=== PATIENT | female | born 1990 | race Caucasian/White ===

== ENCOUNTER 2024-06-26 17:11 | Emergency (ER) | payer OTHER, SELFPAY ==
[2024-06-26 17:20] VITALS: BP 112/80; PULSE 90; RESP 16; TEMP 37.1; O2SAT 100
--- NOTE | 2024-06-26 17:39 | ED_ITS ---
HPI - URI/Sore Throat General Chief Complaint: Upper Respiratory Infection Stated Complaint: sore throat strep exp Time Seen by Provider: 06/26/24 17:39 Source: patient Mode of arrival: ambulatory Limitations: no limitations History of Present Illness HPI Narrative: 33 yo F presents with c/o sore throat for 1 wk. No other symptoms. Her boyfriend tested positive for strep yesterday. All systems reviewed and negative except as noted above. Related Data Home Medications ?Medication ?Instructions ?Recorded ?Confirmed ?Last Taken ?Type spironolactone 100 mg tablet 100 mg PO DAILY 12/08/20 12/14/20 Unknown History Allergies Allergy/AdvReac Type Severity Reaction Status Date / Time Sulfa (Sulfonamide Allergy Mild Rash Verified 06/26/24 17:36 Antibiotics) Review of Systems Review of Systems: CONSTITUTIONAL: Denies fever, chills, or sweats. EYES: Denies visual changes, redness, or discharge. ENT: Denies rhinorrhea, congestion . Reports sore throat. Denies otalgia. CARDIOVASCULAR: Denies chest pain, palpitations, or edema. RESPIRATORY: Denies cough or dyspnea. GASTROINTESTINAL: Denies abdominal pain, nausea, vomiting, or diarrhea. GENITOURINARY: Denies dysuria or hematuria. SKIN: Denies rash or itching. MUSCULOSKELETAL: Denies back pain, joint pain, or myalgia. NEUROLOGIC: Denies headache, numbness, or weakness. PSYCHIATRIC: Denies anxiety or depression. All other systems reviewed are negative, except as documented in HPI. [facility] Surgical History Surgical History History of umbilical hernia repair 2018 S/P breast augmentation 2018 Family History Family History Unknown Cancer Mother Anxiety Grandparent Breast cancer Other Family history of malignant neoplasm Social History Social History (Updated 06/30/23 @ 14:15 by Kimberly Oliver APRN) Smoking status: Never smoker Alcohol intake: current Substance use: never Substance use type: does not use Do You Feel Safe in your Home?: Yes Lack of Transportation: No Lack of Food: Never True Current Housing: I Have Housing Concerned About Future Housing: No Difficulty Paying Gas/Electric Bills: YES Difficulty Paying for Meds: No Currently Unemployed: No Education: High School Diploma/GED Difficulty w/ Childcare or Family Care: No Living arrangements: with family Additional living arrangements comments: has three children Occupation/Education: occupation 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 There is no relevant family history pertinent to the presenting complaint. Exam Narrative: GENERAL: This is a well-nourished, well-developed patient, in no apparent distress. HEAD: normocephalic, atraumatic. EYES: PERRL. Sclera clear/white. Vision is grossly intact. EARS: External ears normal, auditory canals clear and without drainage, TMs normal without perforation. Hearing grossly intact. NOSE: External nose normal with no obvious nasal discharge, nares without redness, no rhinorrhea. THROAT: Mucous membranes moist, mild erythema without significant swelling or exudates NECK: Neck supple, non-tender without lymphadenopathy, masses or thyromegaly. CARDIOVASCULAR: Regular rate and rhythm without murmurs, gallops, or rubs. RESPIRATORY: Clear to auscultation. Breath sounds equal bilaterally. No wheezes, rales, or rhonchi. SKIN: warm, Dry, intact with no suspicious lesions or rash, good texture and turgor. NEURO: awake, alert, and oriented to person, place and time. There were no obvious focal neurologic abnormalities. EXTREMITIES: No joint tenderness, effusion, or edema noted. Course Course Level of Care: Express Care Visit Vital Signs Vital signs: Vital Signs Temperature 37.1 C 06/26/24 17:20 Pulse Rate 90 06/26/24 17:20 Respiratory Rate 16 06/26/24 17:20 Blood Pressure 112/80 06/26/24 17:20 Pulse Oximetry 100 06/26/24 17:20 Oxygen Delivery Room Air 06/26/24 17:20 Temperature 37.1 C 06/26/24 17:20 Pulse Rate 90 06/26/24 17:20 Respiratory Rate 16 06/26/24 17:20 Blood Pressure 112/80 06/26/24 17:20 Pulse Oximetry 100 06/26/24 17:20 Oxygen Delivery Room Air 06/26/24 17:20 reviewed MDM - URI/Sore Throat MDM Narrative Medical decision making narrative: positive strep throat. Will treat with amoxicillin. Patient is well- appearing, nontoxic. Please be advised this is a medical document. It is intended for ttoq-ee-ayen communication. It is written in medical language and may contain unfamiliar abbreviations or verbiage. Medical documents are intended to carry relevant information, facts as evident, and the clinical opinion of the practitioner at the time of the encounter. This report may have been done utilizing a voice recognition system. Attempts have been made to correct errors. However, there may be uncorrected grammatical, spelling, and recognition errors present. The file time of this note does not necessarily represent the time of service. Differential Diagnosis Differential diagnosis: Likely upper respiratory infection, viral infection and pharyngitis Lab Data Labs: Lab Results 06/26/24 Range/Units 17:35 POC Grp A Strep Screen Positive (Negative) Discharge Plan Discharge Clinical Impression: Strep throat Patient Disposition: Home, Self-Care Condition: Stable Instructions: Antibiotic Form, Strep Throat (ED) Additional Instructions: Your strep test was positive today. Take antibiotic as prescribed until gone. Change toothbrush after taking antibiotic for 24 hours. Take Tylenol or ibuprofen every 6-8 hours as needed for pain and fever. Follow-up with your doctor if symptoms are not improving. Patient Language: Japanese Prescriptions: New amoxicillin 500 mg tablet 500 mg PO Q12H 10 Days Qty: 20 0RF No Action spironolactone 100 mg tablet 100 mg PO DAILY Follow-up/Referrals: Kimberly Oliver APRN [Primary Care Provider] - Time of Disposition: 17:44
[2024-06-26 17:41] LABS: EDSTREPNEGPOS1 Positive (Negative)
== END 2024-06-26 17:50 | disposition home or self-care (01) ==
PROVIDERS: Emergency Provider Nurse Practitioner Family; PCP Nurse Practitioner Family
DX: J02.0 Streptococcal pharyngitis (principal)
CPT/HCPCS: 87880; 99213; G0463

== ENCOUNTER 2024-10-15 14:52 | Outpatient (CLI) | payer MEDICAID, SELFPAY ==
--- NOTE | ~2024-10-15 | US_ITS ---
EXAMINATION: US thyroid DATE: 10/15/2024 15:32 INDICATION: Nontoxic thyroid nodule TECHNIQUE: Multiple ultrasound images of the thyroid were obtained. COMPARISON: None. FINDINGS: Within the right lobe of the thyroid gland are multiple subcentimeter nodules with central echogenic areas, raising the suspicion for papillary thyroid carcinoma. The largest of these nodules measures 5.7 x 5.9 x 3.8 mm. Two additional similar appearing nodules are identified within the left lobe of the thyroid gland, me asuring 4.2 x 2.3 mm and 2.3 x 1.9 mm. The right thyroid lobe measures 6.0 x 2.2 x 1.7 cm. The left thyroid lobe measures 4.8 x 1.5 x 1.7 cm. Within the left lobe of the thyroid gland is a 5.4 x 3.6 x 5.4 mm nodule: Composition -mixed cystic and solid (1) Echogenicity -hyperechoic and isoechoic (1) Shape - wider than tall Margin - smooth Echogenic foci - none. = TR2 not suspicious. Within the left lobe of the thyroid gland is an additional nodule measuring 6.9 x 3.5 x 6.7 mm: Composition -mixed cystic and solid (1) Echogenicity -hyperechoic and isoechoic (1) Shape - wider than tall Margin - smooth Echogenic foci - none. = TR2 not suspicious. The isthmus measures 0.4cm in anterior to posterior dimension. Within the isthmus of the thyroid gland, to the right of midline, is an 18.7 x 11.0 x 16 mm nodule: Composition -mixed cystic and solid (1) Echogenicity - hypoechoic (2) Shape - wider than tall Margin - smooth Echogenic foci - none. = TR3 Mildly suspicious Greater than or equal to 1.5 cm: Follow-up (as in this patient) Greater than or equal to 2.5 cm: FNA There is otherwise normal echotexture and echogenicity throughout the remainder of the thyroid gland. No additional discrete nodules identified. Normal vascular flow is present. IMPRESSION: Multiple subcentimeter solid nodules with a central echogenic area (which has been shown to be only 5 2% sensitive but 91% specific for papillary thyroid cancer) for which ultrasound-guided biopsy is rec ommended. Of note, the central echogenic area contains a high density of conglomerate fibrosis and should be av oided during FNA to decrease the chance of an inadequate sample collection. TR 2 and TR 3 nodules throughout the remainder of the thyroid gland for which follow-up is recommende d. Reviewed, dictated and finalized at location A. IMPRESSION: Multiple subcentimeter solid nodules with a central echogenic area (which has b een shown to be only 52% sensitive but 91% specific for papillary thyroid cance r) for which ultrasound-guided biopsy is recommended. Of note, the central echogenic area contains a high density of conglomerate fib rosis and should be avoided during FNA to decrease the chance of an inadequate sample collection. TR 2 and TR 3 nodules throughout the remainder of the thyroid gland for which f ollow-up is recommended.
--- OUTSIDE RECORDS SUMMARY | 2024-10-15 14:56 | XMS_ITS | Encounter Summary ---
Author Organization [facility] Address [address] [place] [address] Care Team Providers Care Plastics Supervisor Name Role Phone Sanket Washburn MD Unavailable Unavailabl e Encounter Details Date Type Department Care Team (Late st Contact Info) Description 04/18/2020 Lab Requisition 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 DermPath Lab Received: 04/18/2020 06:44 AM Pathologist: Tracy Burt MD Specimen: Skin, mid back 0 4:21 PM EHS SPECIALIST DERMATOPATHOLOGY LABORATORY Final Diagnosis Specimen A. SKIN, mid back: COMPOUND MELANOCYTIC NEVUS (D22.5) 0 4:21 PM EHS SPECIALIST DERMATOPATHOLOGY LABORATORY at [address] EHS SPECIALIST Clinical History Nevus. Path# [id number] 0 4:21 PM [facility] DERMATOPATHOLOGY LABORATORY Gross Description Specimen A: Received is one formalin filled container labeled with the patient's name and designated mid back. The specimen consists of a shave biopsy measuring 10x9x4 mm, bisected. Jar 0. 0 4:21 PM [facility] DERMATOPATHOLOGY LABORATORY Microscopic Description Specimen A. SKIN, mid back: There are nests of melanocytes at the dermal-epidermal junction and within the dermis. 0 4:21 PM [facility] DERMATOPATHOLOGY LABORATORY Disclaimer An external and internal positive and negative controls are appropriate for the histochemical, immunohistochemical and immunofluorescence stain(s) in this case (if any), except where stated explicitly. The performance characteristics of the stain(s) cited in this report were developed and its performance characteristic determined by the Dermatopathology Laboratory at [facility], directed by Dr. Anthony Figueroa. These tests need not be, and therefore are not, approved by the [place] Food and Drug Administration. The tests are used for clinical purposes. Billing Codes Specimen Charges Stain Charges 74629 1 0 4:21 PM [facility] DERMATOPATHOLOGY LABORATORY Embedded Images 0 4:21 PM [facility] DERMATOPATHOLOGY LABORATORY Pathology/Cytolog y TISSUE SPECIMEN FROM SKIN / Unknown 04/17/2020 04/18/2020 6:44 AM EHS SPECIALIST Charlie Joy MD LAB - PATHOLOGY/CYTOLOGY ORDER BRYAN Final Result DERMATOPATHOLOGY LABORATORY [facility] Department of Dermatology [address], [address] [phone] documented in this encounter Visit Diagnoses Not on filedocumented in this encounter Care Teams Plastics Supervisor Relationship Specialty Start Date End Date Sanket Washburn MD PCP - Attributed-[employer] [facility] [employer] [place] 09/02/22 03/22/23 documented as of this encounter
--- OUTSIDE RECORDS SUMMARY | 2024-10-15 14:56 | XMS_ITS | Clinical Summary ---
Author Organization [facility] Address [address] [place] [address] Care Team Providers Care Architecture Manager Name Role Phone Unavailable Primary Care Provider Unavailabl e Source Comments [facility] Serious Business,non-owned Affiliates and Associated Physician Practices is amultiple site organization consisting of ambulatory clinics and hospital sitesin [place], [place], [place] and [place]. This disclosure is being madepursuant to the Care Everywhere program and may not contain all information available regarding this patient. 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 Gender Identity Not on file Sexual Orientation Not on file Plan of Treatment Health Maintenance Due Date Last Done Comments HIV SCREENING 2005 HEPATITIS C SCREENING 10/31/2008 DTAP/TDAP/TD VACCINES (1 - Tdap) 2009 HEPATITIS B VACCINE (1 of 3 - 19+ 3-dose series) 2009 COVID-19 VACCINE (1 - 2023-2 5 season) 2024 DEPRESSION SCREENING 05/05/2024 INFLUENZA VACCINE (Season Ended) 2025 ZOSTER VACCINE (1 of 2) 2040 HIB VACCINE Aged Out No longer eligi ble based on patient's age to complete this topic HPV VACCINE Aged Out No longer eligi ble based on patient's age to complete this topic MENINGOCOCCAL (Group B) VACC INE SHARED DECISION-MAKING Aged Out No longer eligibl e based on patient's age to complete this topic MENINGOCOCCAL GROUPS A/C/Y/W VACCINE Aged Out No longer eligible b ased on patient's age to complete this topic PNEUMOCOCCAL VACCINE Aged Out No long er eligible based on patient's age to complete this topic Insurance [address] [place] [id number] [place]
--- OUTSIDE RECORDS SUMMARY | 2024-10-15 14:56 | XMS_ITS | Clinical Summary ---
Author Organization [facility] Address [address] [place] [phone] Phone Care Team Providers Care Aircraft Engine Installer Name Role Phone Unavailable Primary Care Provider Unavailabl e Allergies Active Allergy Reactions Criticality Noted Date Comments Sulfa (Sulfonamide Antibiotics) Rash Low 07/2020 Medications Lactobac no.41/Bifidobact no.7 (PROBIOTIC-10 ORAL) Take by mouth. Active ascorbic acid (VITAMIN C ORAL) Take by mouth. Active ergocalciferol, vitamin D2, (VITAMIN D ORAL) Take by mouth. Active levonorgestrel-e thinyl estradiol (Levora-28) 0.15-0.03 mg tablet Take 1 Tablet by mouth daily. 28 Tablet 11 10/30/2022 Active Active Problems No known active problems Resolved Problems Problem Noted Date Diagnosed Date Resolved Date care of multigravida, antepartum 07/05/2020 07/18/2022 Family History Medical History Relation Name Comments Breast Cancer Maternal Grandmother Colon Cancer Neg Hx Ovarian Cancer Neg Hx Relation Name Status Comments Maternal Grandmother Social History Tobacco Use Types Packs/Day Years Used Date Smoking Tobacco: Never Smokeless Tobacco: Never Alcohol Use Standard Drinks/Week Comments Not Currently 0 (1 standard drink = 0.6 oz pur e alcohol) Feeling Safe Answer Date Recorded Within the last year, have y ou been afraid of your partner or ex-partner? No 07/05/2020 Within the last year, have y ou been humiliated or emotionally abused in other ways by your partner or ex-partner? No Within the last year, have y ou been kicked, hit, slapped, or otherwise physically hurt by your partner or ex-partner? No 07/05/2020 Within the last year, have y ou been raped or forced to have any kind of sexual activity by your partner or ex-partner? No 07/05/2020 Comments No Sex and Gender Information Value Date Recorded Sex Assigned at Not on file Legal Sex Female 9:30 AM NODE JS DEVELOPER Gender Identity Not on file Sexual Orientation Not on file Last Filed Vital Signs Vital Sign Reading Time Taken Comments Blood Pressure 118/79 07/18/2022 8:54 AM CDT Pulse 95 10/23/2020 11:00 AM CDT Temperature 36.9 C (98.4 F) 10/23/2020 11:00 AM CDT Respiratory Rate 18 10/23/2020 11:0 0 AM CDT Oxygen Saturation - - Inhaled Oxygen Concentration - - Weight 60.2 kg (132 lb 12.8 oz) 07/18/2022 8:54 AM CDT Height 162.6 cm (5' 4) 07/18/2022 8:54 AM CDT Body Mass Index 22.8 07/18/2022 8:54 AM CDT Plan of Treatment Health Maintenance Due Date Last Done Comments DTAP/TDAP/TD VACCINES (1 - Tdap) 2009 HEPATITIS B VACCINES (1 of 3 - 19+ 3-dose series) 2009 INFLUENZA VACCINE (#1) 2023 PAP SMEAR 07/18/2025 07/18/2022 CERVICAL CANCER SCREENING 07/19/2027 HPV/Cotest (21-29) 07/19/2027 07/18/2022 HPV/Cotest (30-65) 07/19/2027 07/18/2022 HPV VACCINES Aged Out No longer eligi ble based on patient's age to complete this topic Procedures Procedure Name Priority Date/Time Associated Diagnosis Comments CERV/VAG CYTO AGE BASED SCREEN PAP Routine 07/18/2022 10:07 AM CDT Well woman exam with routine gynecological exam from Last 3 Months or Most Recently Relevant to Health Maintenance Results * CERV/VAG CYTO AGE BASED SCREEN PAP (07/18/2022 10:07 AM CDT) COMMENT (PAP): [facility] [place] Comment: This order for age-based cervical cancer and STI screening follows ACOG guidelines(PB 168, 140, TCI260). See individual assays for performing site location. CLINICAL INFORMATION [facility] [place] Comment:Routine exam LAST MENSTRUAL PERIOD [facility] [place] Comment:07/10/2022 PREV PAP: [facility] [place] Comment:NONE GIVEN PREV BX: [facility] [place] Comment:NONE GIVEN SOURCE [facility] [place] Comment:Endocervix ADEQUACY: [facility] [place] Comment: Satisfactory for evaluation. Endocervical/transformation zone component present. PAP INTERP [facility] [place] Comment:Negative for intraep ithelial lesion or malignancy. COMMENT (PAP TEST) [facility] [place] Comment: This Pap test has been evaluated with computer assisted technology. GASTROENTEROLOGY NURSE: Jemma shook [facility] [place] Comment: MEF, CT(ASCP) CT screening location: [place] [address] [place] [address] EXPLANATORY NOTE [facility] [place] Comment: EXPLANATORY NOTE: The Pap is a screening test for cervical cancer. It is not a diagnostic test and is subject to false negative and false positive results. It is most reliable when a satisfactory sample, regularly obtained, is submitted with relevant clinical findings and history, and when the Pap result is evaluated along with historic and current clinical information. HPV E6/E7 Not Detected Not Detected [facility] Comment: Methodology: [employer] Prosthetics Assistant-Mediated Amplification This assay detects E6/E7 viral messenger RNA (mRNA) from 14 high-risk HPV types (16,18,31,33,35,39,45,51,52,56,58,59,66,68). Cervical sources are required for HPV testing. If a vaginal source from a patient who has had a total hysterectomy with removal of cervix was submitted, please contact the testing laboratory for alternative testing options. For additional information, please refer to http://education.MasterImage 3D/faq/TQI372p7 (This link if provided for information/ educational purposes only.) Test Performed at: [facility] [address] [place] [address] Chu PAGAN Genital SWAB OF ENDOCERVIX / Unknown 07/18/2022 10:07 AM CDT 07/18/2022 9:29 PM CDT Tasha Osborn LAITH PATHOLOGY/CYTOLOGY ORDERABLES F inal Result [facility] [phone] [email or web address] [address] [place] [address] from Last 3 Months or Most Recently Relevant to Health Maintenance Insurance [facility] [employer] PREFERR[employer] Advance Directives For more information, please contact: [phone] * Full Code (Latest Code Status on File) Date Activated Date Inactivated Comments 10/22/2020 4:22 AM 10/22/2020 5:16 PM * Full Code Date Activated Date Inactivated Comments 10/22/2020 3:01 AM 10/22/2020 4:22 AM
== END 2024-10-15 14:53 | disposition home or self-care (01) ==
LOC: ANHIMG 14:54
PROVIDERS: PCP Nurse Practitioner Family; Visit Provider Nurse Practitioner Family
DX: E04.2 Nontoxic multinodular goiter (principal)
CPT/HCPCS: 76536

== ENCOUNTER 2024-11-23 10:11 | Outpatient (CLI) | payer OTHER, SELFPAY ==
--- NOTE | ~2024-11-23 | US_ITS ---
EXAMINATION: US THYROID BIOPSY, right-sided DATE: 11/23/2024 19:30 CDT INDICATION: Enlarged right thyroid lobe nodule TECHNIQUE: The procedure for biopsy of the thyroid nodule and its benefits and risks were explained t o the patient. Potential risk included were not limited to bleeding, infection, and nondiagnostic sp ecimen. Once informed consent was obtained, the patient was taken to the ultrasound suite and placed in the supine position on the ultrasound table. Limited ultrasound was then performed of the thyroid gland prior to intervention. This demonstrated multiple nodules with a central echogenic area. The largest was located within the lower pole of the right lobe of the thyroid gland measuring 10.7 x 6.3 x 12.5 mm in greatest dimensio n. The neck was prepped and draped in the usual sterile manner. 10 cc 1% lidocaine without epinephrine was utilized for local anesthesia6 passes were made with a 25G needle into the right-sided thyroid lesion. Appropriate needle location was documented with continu ous sonographic guidance. The specimens were passed to the cytopathologist in the room for the karen david who confirmed adequacy. All needles were removed and a sterile dressing applied. The patient tolerated the procedure without difficulty and was discharged to home from the ultrasound area in stable condition. FINDINGS: Multiple nodules with a central echogenic area, the largest within the lower pole of the right lobe o f the thyroid gland measuring 12.5 mm in greatest dimension, suitable for biopsy. Subsequent images demonstrate needles advanced into the lesion for biopsy. IMPRESSION: Technically successful ultrasound guided biopsy of right-sided thyroid nodule. Pathology pending Reviewed, dictated and finalized at location A.
--- OUTSIDE RECORDS SUMMARY | 2024-11-23 10:20 | XMS_ITS | Encounter Summary ---
Author Organization [facility] Address [address] [place] [address] Care Team Providers Care Web Analyst Name Role Phone Sanket Washburn MD Unavailable Unavailabl e Encounter Details Date Type Department Care Team (Late st Contact Info) Description 04/18/2020 Lab Requisition [facility] Derm[facility] [address] [place] [id number] Charlie Joy MD [address] [place] [address] Social History Tobacco Use Types Packs/Day Years Used Date Smoking Tobacco: Never Assessed Comments Unknown Sex and Gender Information Value Date Recorded Sex Assigned at Not on file 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 Gender Identity Not on file Sexual Orientation Not on file documented as of this encounter Plan of Treatment Not on file documented as of this encounter Procedures Procedure Name Priority Date/Time Associated Diagnosis Comments DERMATOPATHOLOGY Routine 04/17/2020 12:0 0 AM SLUMBER ROOM ATTENDANT documented in this encounter Results * DERMATOPATHOLOGY (04/17/2020 12:00 AM SLUMBER ROOM ATTENDANT) Case Report Dermatopathology Report Case: [id number] Authorizing Provider: Charlie Joy MD Collected: 04/17/2020 12:00 AM Ordering Location: [facility] Received: 04/18/2020 06:44 AM Pathologist: Tracy Burt MD Specimen: Skin, mid back 0 4:21 PM SLUMBER ROOM ATTENDANT DERMATOPATHOLOGY LABORATORY Final Diagnosis Specimen A. SKIN, mid back: COMPOUND MELANOCYTIC NEVUS (D22.5) 0 4:21 PM SLUMBER ROOM ATTENDANT DERMATOPATHOLOGY LABORATORY at [address] SLUMBER ROOM ATTENDANT Clinical History Nevus. Path# [id number] 0 4:21 PM [facility] DERMATOPATHOLOGY LABORATORY Gross Description Specimen A: Received is one formalin filled container labeled with the patient's name and designated mid back. The specimen consists of a shave biopsy measuring 10x9x4 mm, bisected. Jar 0. 0 4:21 PM [facility] DERMATOPATHOLOGY LABORATORY Microscopic Description Specimen A. SKIN, mid back: There are nests of melanocytes at the dermal-epidermal junction and within the dermis. 0 4:21 PM [facility] DERMATOPATHOLOGY LABORATORY Disclaimer An external and internal positive and negative controls are appropriate for the histochemical, immunohistochemical and immunofluorescence stain(s) in this case (if any), except where stated explicitly. The performance characteristics of the stain(s) cited in this report were developed and its performance characteristic determined by the Dermatopathology Laboratory at [facility], directed by Dr. Anthony Figueroa. These tests need not be, and therefore are not, approved by the [place] Food and Drug Administration. The tests are used for clinical purposes. Billing Codes Specimen Charges Stain Charges 45435 1 0 4:21 PM [facility] DERMATOPATHOLOGY LABORATORY Embedded Images 0 4:21 PM [facility] DERMATOPATHOLOGY LABORATORY Pathology/Cytolog y TISSUE SPECIMEN FROM SKIN / Unknown 04/17/2020 04/18/2020 6:44 AM SLUMBER ROOM ATTENDANT Charlie Joy MD LAB - PATHOLOGY/CYTOLOGY ORDER BRYAN Final Result DERMATOPATHOLOGY LABORATORY [facility] Department of Dermatology [address] [phone] documented in this encounter Visit Diagnoses Not on filedocumented in this encounter Care Teams Web Analyst Relationship Specialty Start Date End Date Sanket Washburn MD PCP - Attributed-[employer] [facility] [employer] [place] 09/02/22 03/22/23 documented as of this encounter
--- OUTSIDE RECORDS SUMMARY | 2024-11-23 10:20 | XMS_ITS | Clinical Summary ---
Author Organization [facility] Address [address] [place] [address] Care Team Providers Care Proprietary Trader Name Role Phone Unavailable Primary Care Provider Unavailabl e Source Comments [facility] [employer],non-owned Affiliates and Associated Physician Practices is amultiple site organization consisting of ambulatory clinics and hospital sitesin [place] and [place]. This disclosure is being madepursuant to the Care Everywhere program and may not contain all information available regarding this patient. Last updated 18.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
--- NOTE | 2024-11-23 11:25 | CY_PTH ---
PATIENT: Kimberly Saucedo LOC: ANHIMG #:[id number] AGE/SX: 34/F ROOM: RE11/23/[address]: Kimberly Oliver APRN : 1990 BED: DIS: 11/23/2024 SPEC #: [id number] RECD: 11/23/24 11:26 STATUS: GABRIEL REQ #: [id number] EVERARDO: 11/23/24 11:[address]: Kimberly Oliver DEPT: [facility] Cytology RECD BY: Heather Preciado MLT, ([facility]) Tissues: A - FNA Thyroid Procedures: Hematoxylin and Eosin Stain Cell Block Fine Needle Aspiration Evaluation Fine Needle Aspiration Pathologist
== END 2024-11-23 10:12 | disposition home or self-care (01) ==
PROVIDERS: PCP Nurse Practitioner Family; Visit Provider Nurse Practitioner Family
DX: E04.1 Nontoxic single thyroid nodule (principal)
CPT/HCPCS: 10005; 88172; 88173; 88305